=== PATIENT | female | born 1935 | race Caucasian/White ===

== ENCOUNTER 2017-08-28 08:53 | Day surgery (SDC) | payer MEDICAID, OTHER ==
[~2017-08-28] VITALS: Ht 157.5 cm; Wt 55.5 kg
[~2017-08-28 08:53] MED LIST: FOLI-74 PO; FURO20 PO; LEVO75 PO; METO25 PO; SODIUM CHLORIDE 0.9% 1,000 ML IV ONE; VITA1CAP17 PO; VITAD1000 PO; [UNRECOGNIZED DRUG - OTHER] PO
[2017-08-28] MEDS ORDERED: SODIUM CHLORIDE 0.9% 1,000 ML IV ONE (09:30)
== END 2017-08-28 10:35 | disposition home or self-care (01) ==
LOC: SURGERY 08:53
PROVIDERS: ATTEND Internal Medicine Gastroenterology
DX: K52.9 Noninfective gastroenteritis and colitis, unspecified (principal); E03.9 Hypothyroidism, unspecified; I11.0 Hypertensive heart disease with heart failure; I50.9 Heart failure, unspecified; K86.89 Other specified diseases of pancreas; E78.2 Mixed hyperlipidemia; F17.210 Nicotine dependence, cigarettes, uncomplicated; M81.0 Age-related osteoporosis without current pathological fracture; R18.8 Other ascites; D50.9 Iron deficiency anemia, unspecified; K21.9 Gastro-esophageal reflux disease without esophagitis; Z79.82 Long term (current) use of aspirin; Z79.899 Other long term (current) drug therapy; Z98.890 Other specified postprocedural states; Z53.8 Procedure and treatment not carried out for other reasons
CPT/HCPCS: 93005; J7030